=== PATIENT | female | born 1950 | race Caucasian/White ===

== ENCOUNTER 2018-12-02 13:55 | Outpatient (REF) | payer MEDICARE, BC, SELFPAY ==
[2018-12-02 22:29] LABS: Anion Gap 13.2 mmol/L (3-11); BUN 16 mg/dL (7-18); CO2 25.8 mmol/L (21.0-32.0); CREATININE 0.85 mg/dL (0.55-1.02); Calcium 9.2 mg/dL (8.5-10.1); Chloride 104 mmol/L (98-107); Glucose 195 mg/dL (70-100); Potassium 4.1 mmol/L (3.5-5.1); Sodium 143 mmol/L (136-145)
== END 2018-12-02 14:15 ==
LOC: NCHCN 13:55
PROVIDERS: PCP Family Medicine; Visit Provider Family Medicine
DX: I10 Essential (primary) hypertension (principal)
CPT/HCPCS: 80048

== ENCOUNTER 2020-02-03 13:36 | Outpatient (REF) | payer MEDICARE, BC, SELFPAY ==
[2020-02-03 23:01] LABS: ALT 30 U/L (14-59); AST 17 U/L (15-37); Albumin 3.8 g/dL (3.4-5.0); Alkaline Phosphatase 84 U/L (46-116); Anion Gap 8.7 mmol/L (3-11); BUN 26 mg/dL (7-18); Bilirubin, Total 0.3 mg/dL (0.2-1.0); CO2 29.3 mmol/L (21.0-32.0); Calcium 9.4 mg/dL (8.5-10.1); Calculated LDL 85 mg/dL (<100); Chloride 107 mmol/L (98-107); Cholesterol 160 mg/dL (<200); Glucose 111 mg/dL (74-106); HDL Cholesterol 33 mg/dL (40-60); Potassium 5.3 mmol/L (3.5-5.1); Sodium 145 mmol/L (136-145); Total Protein 7.5 g/dL (6.4-8.2); Triglyceride 212 mg/dL (<150)
[2020-02-04 00:11] LABS: Vitamin B12 462 pg/mL (193-986)
[2020-02-04 04:38] LABS: Vitamin D 25 Total 29.7 ng/ml (30-100)
== END 2020-02-03 13:56 ==
LOC: NCHCN 13:36
PROVIDERS: PCP Family Medicine; Visit Provider Family Medicine
DX: I10 Essential (primary) hypertension; E11.40 Type 2 diabetes mellitus with diabetic neuropathy, unspecified; E55.9 Vitamin D deficiency, unspecified
CPT/HCPCS: 80053; 80061; 82306; 82607

== ENCOUNTER 2020-03-14 15:12 | Outpatient (REF) | payer MEDICARE, BC, SELFPAY ==
[2020-03-14 21:02] LABS: Anion Gap 11.5 mmol/L (3-11); BUN 23 mg/dL (7-18); CO2 28.5 mmol/L (21.0-32.0); CREATININE 0.98 mg/dL (0.55-1.02); Calcium 9.3 mg/dL (8.5-10.1); Chloride 103 mmol/L (98-107); Estimated GFR 56.61 (mL/min/1.73m2); Glucose 100 mg/dL (74-106); Potassium 4.1 mmol/L (3.5-5.1); Sodium 143 mmol/L (136-145)
== END 2020-03-14 15:32 ==
LOC: NCHCN 15:12
PROVIDERS: PCP Family Medicine; Visit Provider Nurse Practitioner Family
DX: E87.5 Hyperkalemia (principal)
CPT/HCPCS: 80048

== ENCOUNTER 2021-02-07 14:04 | Outpatient (REF) | payer MEDICARE, BC, SELFPAY ==
[2021-02-07 16:37] LABS: Anion Gap 8.7 mmol/L (3-11); BUN 18 mg/dL (7-18); CO2 29.3 mmol/L (21.0-32.0); CREATININE 0.9 mg/dL (0.55-1.02); Calcium 9.3 mg/dL (8.5-10.1); Chloride 104 mmol/L (98-107); Glucose 143 mg/dL (74-106); Potassium 4.3 mmol/L (3.5-5.1); Sodium 142 mmol/L (136-145)
== END 2021-02-07 14:05 | disposition home or self-care (01) ==
LOC: NCHCN 14:04
PROVIDERS: PCP Family Medicine; Visit Provider Family Medicine
DX: I10 Essential (primary) hypertension (principal); E11.8 Type 2 diabetes mellitus with unspecified complications
CPT/HCPCS: 80048

== ENCOUNTER 2021-08-29 15:05 | Outpatient (REF) | payer MEDICARE, BC, SELFPAY ==
[2021-08-29 16:53] LABS: HCT 38.2 % (36.0-46.0); HGB 12.1 g/dL (11.2-15.7); MCH 27.1 pg (27.0-33.0); MCHC 31.7 % (32.0-36.0); MCV 85.7 fL (80-95); MPV 10.1 fL (8.0-11.0); Platelet Count 363 10^3/uL (130-400); RBC 4.46 10^6/uL (3.93-5.22); RDW 12.3 % (11.7-14.6); RDW-SD 38.6 fL; WBC 8.33 10^3/uL (4.4-10.8)
[2021-08-29 17:32] LABS: ALT 28 U/L (14-59); AST 18 U/L (15-37); Albumin 3.3 g/dL (3.4-5.0); Alkaline Phosphatase 75 U/L (46-116); Anion Gap 11.9 mmol/L (3-11); BUN 23 mg/dL (7-18); Bilirubin, Total 0.4 mg/dL (0.2-1.0); CO2 26.1 mmol/L (21.0-32.0); CREATININE 0.9 mg/dL (0.55-1.02); Calcium 9.2 mg/dL (8.5-10.1); Calculated LDL 49 mg/dL (<100); Chloride 103 mmol/L (98-107); Cholesterol 119 mg/dL (<200); Glucose 162 mg/dL (74-106); HDL Cholesterol 32 mg/dL (40-60); Potassium 3.8 mmol/L (3.5-5.1); Sodium 141 mmol/L (136-145); TSH (W/Ref FT4) < 0.01 uIU/mL (0.36-3.74); Triglyceride 191 mg/dL (<150)
[2021-08-29 18:01] LABS: FREE T4 2.76 ng/dL (0.76-1.46)
== END 2021-08-29 15:06 | disposition home or self-care (01) ==
LOC: NCHCN 15:05
PROVIDERS: PCP Family Medicine; Visit Provider Family Medicine
DX: E11.8 Type 2 diabetes mellitus with unspecified complications (principal)
CPT/HCPCS: 80053; 80061; 85027; 84439; 84443

== ENCOUNTER → 2021-10-27 00:59 | Outpatient (CLI) | payer MEDICARE, BC, SELFPAY ==
--- OUTSIDE RECORDS SUMMARY | 2021-10-27 01:01 | XMS_ITS | Encounter Summary ---
:1950 Author Care Team Providers Name Role Phone Antionette Coronado MD Primary Care Provider [phone] [facility] Medical Records Primary Care Provider [phone] [facility] OTHER [phone] Reason for Visit None recorded. Assessment and Plan 1. Obstructive sleep apnea syndrome VITOR diagnosed in 1998 with an RDI of 24 /hr. She has been using BiPAP Imax 20 cm, Babak 10 cm, PS 4 cm with excellent compliance and reduction in AHI. Unfortunately her is bothered by an oral air leak, puffing from her mouth and residu al snoring even though she is not aware of it. She has tried different masks (nasal and full face mask) with a chin strap and the problem persisted. She just had a titration study. She had mouth puffing once BiPAP reached 14/10 cm. She had a high air leak with her Wisp nasal mask. She did the best on CPAP 11 cm with the Airtouch F20 with elimination of most abno rmal respiratory events, maintaining ravi quate oxygenation and no excessive leaking or mouth puffing. Recommendation is to try CPAP -13 cm and consider a new mask fit with DME. She has actually been doin g pretty well with the F20 and her leak is low on data. Today I set her BiPAP to function as a CPAP with Imax 13 cm, Babak 11 cm and PS 0 cm. I suggested she consider a positional device such as a Slumbe r Bump and she will try this but she sle eps more comfortably on her back. I will see her back in two months. She is going to call if she has a problem. I have asked for a two week compliance. She has be en using the Airtouch F20 and done surpr isingly well with this. She is getting a new cushion 09/13/21. I provided greater than 30 minutes in [facility] care of this patient, more than half the time was spent in [id number] counseling. ? BiPAP supplies Discussion Note: None recorded.Patient educational handouts: No information available. Plan of Care Reminders Provider Appointments Visit 03/02/2023 Polly Patel NP Lab None recorded. ? ? Referral None recorded. ? ? Procedures None recorded. ? ? Surgeries None recorded. ? ? Imaging None recorded. ? ? Medications Name Start Date ? ? Celebrex 200 mg capsule ? Take 1 capsule every day by oral route. CoQ-10 100 mg capsule ? Take 1 capsule twice a day by oral route. fiber 625 mg tablet ? Take 1 tablet every day by oral route. Fish Oil ? 1000mg daily Invokana 100 mg tablet ? Take 1 tablet every day by oral route. Levemir FlexTouch U-100 Insulin 100 unit/mL (3 mL) sub cutaneous pen ? Inject 80 units every day by subcutaneous route at [facility]. metformin 500 mg tablet ? Take 2 tablets twice a day by oral route. turmeric ? 1 cap PO daily Zestoretic 20 mg-12.5 mg tablet ? Take 2 tablets every day by oral route. Zyrtec ? 1 tab a day PO Medications Administered None recorded. Vitals Height Weight BMI Blood Pressure 5 ft 6.5 in 265 lbs 42.1 kg/m2 136/76 mm[Hg] Results Lab Results None recorded. Allergies Code Code System Name Reaction Severity Onset NKDA ? ? ? Problems Name Status Onset Date Source ? Polyp of Colon Active 12/01/2018 ? Diabetes Mellitus Active 12/01/2018 ? Obesity Active 12/01/2018 ? Hypertensive Disorder Active 12/01/2018 ? Lymphedema Active 12/01/2018 ? Umbilical Hernia Active 12/01/2018 ? Hernia of Abdominal Cavity Active 12/01/2018 ? Diverticulitis of Colon Active 12/01/2018 ? Atopic Dermatitis Active 12/01/2018 ? Osteoarthritis of Knee Active 12/01/2018 ? Chronic Low Back Pain Active 12/01/2018 ? Sciatica Active 12/01/2018 ? 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 Obstructive Sleep Apnea Syndrome Active ? History Procedures None recorded. Vaccine List Vaccine Type COVID-19, mRNA, LNP-S, PF, 30 mcg/0.3 mL dose ([facility]) 08/07/2020 08/28/2020 03/14/2021 Social History Tobacco Smoking Status Never Smoker What is your level of alcohol consumption? None What is your level of caffeine Occasional Notes: mt dew 2 a day consumption? Do you or have you ever used any other N forms of tobacco or nicotine? Are you blind or do you have difficulty Y Notes: 1 contact left eye seeing? Do you use any illicit or recreational N drugs? What is your code status? 0 Are you deaf or do you have serious N difficulty hearing? Functional Status Are you blind or do you have difficulty seeing?? Yes Past Encounters 09/05/2021 Obstructive Sleep Apnea Syndrome Polly Patel, LEAD APPLICATIONS DEVELOPER: [address] [place] [phone], Ph. History of Present Illness Note: <p> Vero Gonzalez comes in for VITOR follow-up.</p><div>
</div><p> Vero was last seen by me on 07/13/21. [facility] 1998 RDI 24/hr. Last visit she was using BiPAP 20/10/4 cm but really struggling to find a mask that would work well for her. She had tried a nasal mask with chin strap but still had a lot of oral air leaking/mouth puffing and snoring that was very bothersome to her . She then tried a Resmed F30 full face mask. and she continued to have snoringthat was loud at times. This persisted even with a chin strap. I increase her pressure to 22/14/4 tosee if snoring improved but let her know it would probably make leak worse. She later called to report poor tolerance to this. Her leak on her last download was 0 secs and her AHI was at goal. Given her ongoing problems I recommended a titration study.</p><div>
</div><div>Titration 08/20/21 (BMI ), sleep efficiency 47%, CPAP titrated from 7 to 14 cm and BiPAP titrated from 8/4 cm to 14/10 cm. Arousal index 8/hr, PLMi 35.9, PLMai 2.9/hr. EKG NSR, She was initially started on BIPAP but at 14/10 cm had mouth puffing so she was put on CPAP and it was quickly titrated from 7 to 11 cm. At CPAP 11 cm with her Wisp mask the respiratory events were well controlled but she had a high mask leak. At CPAP 11 cm with the Airfit F20 there was good control of events and adequate leak but she only had lateral sleep at this setting. Adequate oxygen was maintained at CPAP 11 cm. Recommend to try CPAP 11-13 cm</div><div>
</div><div>Vero says she didn't sleep well because our mattress is a piece of trash. </div><div>Vero tells me she has been using the F20 at home and feels she has done surprisingly well with it in terms of tolerating it and keeping the air leak down. She says her snoring is much better since she turned the humidity up to 4/5. </div><div>
</div><div >
</div><p>ESS today 11/24</p><div>
</div><div>COMPLIANCE DATA REVIEWED WITH PATIENT: {{DATES 08/05/21-09/03/21#}}, Used {{25 30 13#}}/30 days, average use {{5 6 7#}} hours {{number 4#}} minutes a night, 90 th percentile IPAP pressure {{8 9 16.9#}}cm, 90 th percentile EPAP pressure {{9 10 12#}}cm, time in large air leak {{5 10 0#}} minutes, AHI {{1 2 4.4#}}/hour.</div>Review of Systems: ROS as noted in the HPI Review of Systems None recorded. Physical Exam ? Notes: <div>General: A&O, well groo med {{over weight obese* morbidly obese normal weight thin}}. </div><div>HE AD: normocephalic & atraumatic. </div><div>EYES: non icteric.</div><div>LUNGS : CTA all german. Good air movement.</div><div>CARDIO: RRR without murmur, gallop or thrill. </div><div>NEURO: A&O. Georgie l gait.</div><div>PSYCH: Normal mood and affect.</div><div>CUTANEOUS: no overt lesions or rashes</div>
--- OUTSIDE RECORDS SUMMARY | 2021-10-27 01:01 | XMS_ITS | CCD ---
:1950 Author Care Team Providers Name Role Phone MARIO CRUZ MD Attending Physician Unavailable Vital Signs Unknown or Not Available. Allergies Allergy Code Allergy Type Reaction Status No Known Drug Allergies 0 No known drug allergies Active Procedures Unknown or Not Available. History of Immunizations Unknown or Not Available. Problems Unknown or Not Available. Results [facility] COVID RHEONIX - Collect Date/Time : 02/28/2021 11:00 Test Name Code Test Result Test Units Test Ref Range SOURCE= Anterior nasal N/A Tier- EXPOSURE N/A SARS COV2 RNA: 67827-7 NEGATIVE N/A REFERENCE RAN GE: NEGAT Active Medications Medication Code Dose Units Frequency Route Modification Start Date/Time CELEBREX 200MG 0 200 MILLIGRAMS DAILY ORAL 2018 ORAL CAPSULE 16:02 Prescription Detail TAKE 200 MILLIGRAMS ORAL PAUL LY FUROSEMIDE TABLET 0 1 TABLET NEEDED ORAL 06/04 16:02 Prescription Detail TAKE 1 TABLET ORAL NEEDED glipiZIDE 5MG Oral Tablet [id number] 5 MILLIGRAMS DAILY ORAL 06/29/2018 16:02 Prescription Detail TAKE 5 MILLIGRAMS ORAL DAILY LEVEMIR 100U/1ML 0 110 UNIT EVERY EVENING SUBCUTANEOUS 06/29/2018 16:02 SUBCUTANEOUS SOLUT Prescription Detail INJECT 110 UNIT SUBCUTANEOUS EVERY EVENING Lisinopril 10MG Oral Tablet [id number] 10 MILLIGRAMS DAILY ORAL 06/29/2018 16:02 Prescription Detail TAKE 10 MILLIGRAMS ORAL LYNETTE Y metFORMIN HCl [id number] 000 MILLIGRAMS TWICE A DAY ORAL 16:02 1000MG Oral Tablet, Extended Release Prescription Detail TAKE 000 MILLIGRAMS ORAL TWI CE A DAY Medications Administered During Visit Unknown or Not Available. Encounters Encounter Diagnosis Diagnosis Code Start Date CONTACT WITH AND SUSPECTED EXPOSURE TO COVID-19 [id number] 02/28/2021 Social History Smoking Status Code Start Date End Date Never smoker [id number] Patient Decision Aids Unknown or Not Available. Discharge Instructions You were admitted to [facility] on 02/28/2021 10:00 with a principal diagnosis of Contact with and (suspected ) exposure to COVID-19 You had the following tests done: COPMIGUELINA Y COVID RHEONIX You were discharged from [facility] 01 on 02/28/2021 10:00 Should you have any questions prior to d ischarge, please contact a member of your healthcare team. If you have left the ho spital and have any questions, please contact your primary care physician. Chief Complaint and Reason For Visit Unknown or Not Available. Function Status Unknown or Not Available. Plan of Care Unknown or Not Available. Referral/Transition of Care Unknown or Not Available.
--- OUTSIDE RECORDS SUMMARY | 2021-10-27 01:01 | XMS_ITS ---
:1950 Author Care Team Providers Name Role Phone RICARDO BLANKENSHIP MD Primary Care Provider [phone] [facility] MEDICAL RECORDS Primary Care Provider [phone] [facility] OTHER [phone] Allergies Code Code System Name Reaction Severity Status Onset NKDA ? Medications Name Status Start Date Stop Date ? ? aspirin 81 mg tablet,delayed release Completed ? 07/17/2021 Take 1 tablet every day by oral route. Celebrex 200 mg capsule Active ? Not avai lable Take 1 capsule every day by oral route. CoQ-10 100 mg capsule Active ? Not availa ble Take 1 capsule twice a day by oral route. fiber 625 mg tablet Active ? Not availabl e Take 1 tablet every day by oral route. Fish Oil Active ? Not available 1000mg daily glipizide 5 mg tablet Completed ? 07/17/2021 Take 1 tablet every day by oral route. Invokana 100 mg tablet Active ? Not avail able Take 1 tablet every day by oral route. Levemir FlexTouch U-100 Insulin 100 unit/mL (3 mL) subcutaneous pen Active ? Not available Inject 80 units every day by subcutaneous route at bedtime. metformin 500 mg tablet Active ? Not avai lable Take 2 tablets twice a day by oral route. turmeric Active ? Not available 1 cap PO daily Victoza Completed ? 09/05/2021 1.8 mg daily Zestoretic 20 mg-12.5 mg tablet Active ? Not available Take 2 tablets every day by oral route. Zyrtec Active ? Not available 1 tab a day PO Problems Name Status Onset Date Source ? [...] Syndrome Active ? History Procedures None recorded. Results Lab Results None recorded. Past Encounters 09/05/2021 Obstructive Sleep Apnea Syndrome Polly Patel PHARMACY GRAD INTERN: [address] [place] [phone], Ph. 07/13/2021 Obstructive Sleep Apnea Syndrome Polly Patel PHARMACY GR[employer] INTERN: [address] [place] [phone], Ph. 03/02/2021 Obstructive Sleep Apnea Syndrome Polly Patel PHARMACY GR[employer] INTERN: [address] [place] [phone], Ph. Social History Tobacco Smoking Status Never Smoker Vaccine List Vaccine Type COVID-19, mRNA, LNP-S, PF, 30 mcg/0.3 mL dose ([facility]) 08/07/2020 08/28/2020 03/14/2021 Plan of Care Reminders Provider Appointments None recorded. ? ? Lab None recorded. ? ? Referral None recorded. ? ? Procedures None recorded. ? ? Surgeries None recorded. ? ? Imaging None recorded. ? ? Vitals 09/05/2021 12:00PM Office 30 Height Weight BMI Blood Pressure 168.91 cm 120.2 kg 42.1 kg/m2 136/76 mm[Hg] 07/13/2021 02:00PM Office 30 Height Blood Pressure 168.91 cm 128/62 mm[Hg] 03/02/2021 02:30PM Office 30 Height Weight BMI Blood Pressure 168.91 cm 132.36 kg 46.4 kg/m2 120/62 mm[Hg] 12/08/2018 01:45PM Office 30 Height Weight BMI Blood Pressure 172.72 cm 149.37 kg 50.1 kg/m2 140/68 mm[Hg] 08/29/2017 Height Weight Blood Pressure 172.72 cm 148.32 kg 136/68 mm[Hg] 04/05/2017 Height Weight Blood Pressure 172.72 cm 148.32 kg (1) 144/80 mm[Hg] (2) 160/62 mm[Hg] 01/14/2017 Height Weight Blood Pressure 172.72 cm 152.07 kg 136/88 mm[Hg]
--- NOTE | 2021-10-27 15:10 | DI.DEXA_ITS ---
Exam(s) XR DEXA BONE DENSITY W/WO ZAIDA EXAM: XR DEXA BONE DENSITY W/WO ZAIDA CLINICAL HISTORY: HIGH RISK OSTEOPOROSIS, Z91.89, POSTMENOPAUSAL, Z78.0 TECHNIQUE: Groxis Horizon C densitometer analysis of the left hip and left forearm. COMPARISON: No exams were available for comparison FINDINGS: Lateral view of the thoracic and lumbar spine shows no evidence of compression fractures. Degenerati ve changes with osteophytes are noted in the lumbar region. Lumbar spine bone mineral density measurements were not included due to peroneus measurements. Bone mineral density measurements of the left hip correspond to a total T-score of 0.3. The femoral neck T-score is -0.5, in the normal range.. The left forearm bone mineral density measurements correspond to a T-score of the distal 3rd of 1.4, in the normal range.. IMPRESSION: Normal bone mineral density of the left hip and left forearm.
== END ==
PROVIDERS: PCP Family Medicine; Visit Provider Family Medicine
DX: Z78.0 Asymptomatic menopausal state (principal); Z13.820 Encounter for screening for osteoporosis; M47.816 Spondylosis without myelopathy or radiculopathy, lumbar region
CPT/HCPCS: 77080

== ENCOUNTER 2021-11-13 10:15 | Outpatient (REF) | payer MEDICARE, BC, SELFPAY ==
[2021-11-13 19:54] LABS: FREE T4 1.99 ng/dL (0.76-1.46)
[2021-11-13 22:44] LABS: T3, Total 187 ng/dL (97-169)
== END 2021-11-13 10:16 | disposition home or self-care (01) ==
LOC: LBN 10:15
PROVIDERS: PCP Family Medicine; Visit Provider Internal Medicine Endocrinology, Diabetes & Metabolism
DX: E05.90 Thyrotoxicosis, unspecified without thyrotoxic crisis or storm (principal)
CPT/HCPCS: 84439; 84480

== ENCOUNTER 2021-11-27 15:47 | Outpatient (REF) | payer MEDICARE, BC, SELFPAY ==
[2021-11-27 20:06] LABS: COMMENT (LAB VIEW ONLY) 19.57 mg/dL; Microalb ug/mg Crea 9.2 ug/mg Cr
== END 2021-11-27 15:48 | disposition home or self-care (01) ==
LOC: NCHCN 15:47
PROVIDERS: PCP Family Medicine; Visit Provider Family Medicine
DX: E11.8 Type 2 diabetes mellitus with unspecified complications (principal)
CPT/HCPCS: 82043; 82570

== ENCOUNTER 2021-12-28 15:51 | Outpatient (REF) | payer MEDICARE, BC, SELFPAY ==
[2021-12-28 18:06] LABS: FREE T4 1.24 ng/dL (0.76-1.46)
[2021-12-28 18:08] LABS: TSH < 0.01 uIU/mL (0.36-3.74)
[2021-12-29 18:09] LABS: T3, Total 127 ng/dL (97-169)
== END 2021-12-28 15:52 | disposition home or self-care (01) ==
LOC: NCHCN 15:51
PROVIDERS: PCP Family Medicine; Visit Provider Family Medicine
DX: E05.00 Thyrotoxicosis with diffuse goiter without thyrotoxic crisis or storm (principal)
CPT/HCPCS: 84439; 84443; 84480

== ENCOUNTER 2022-01-29 15:45 | Outpatient (REF) | payer MEDICARE, BC, SELFPAY ==
[2022-01-29 17:57] LABS: FREE T4 0.79 ng/dL (0.76-1.46); TSH 1.49 uIU/mL (0.36-3.74)
[2022-01-30 17:59] LABS: T3, Total 98 ng/dL (97-169)
== END 2022-01-29 15:46 | disposition home or self-care (01) ==
LOC: LBN 15:45
PROVIDERS: PCP Family Medicine; Visit Provider Internal Medicine Endocrinology, Diabetes & Metabolism
DX: E05.00 Thyrotoxicosis with diffuse goiter without thyrotoxic crisis or storm (principal)
CPT/HCPCS: 84439; 84443; 84480

== ENCOUNTER 2022-09-21 21:01 | Outpatient (REF) | payer MEDICARE, BC, SELFPAY ==
[2022-09-21 21:16] LABS: COMMENT (LAB VIEW ONLY) 59.69 mg/dL
== END 2022-09-21 21:02 | disposition home or self-care (01) ==
LOC: NCHCN 21:01
PROVIDERS: PCP Family Medicine; Visit Provider Family Medicine
DX: E11.8 Type 2 diabetes mellitus with unspecified complications (principal)
CPT/HCPCS: 82043; 82570

== ENCOUNTER 2023-05-06 18:39 | Outpatient (REF) | payer MEDICARE, BC, SELFPAY ==
--- OUTSIDE RECORDS SUMMARY | 2023-05-06 18:41 | XMS_ITS | CCD ---
Author Name Unknown Address [address] [place] [address] [id number] Organization Unknown Address [address] [place] [address] [id number] Care Team Providers Care Window Framer Name Role Phone PATTIE RICARDO Mark Anthony Attending Physician [phone] Vital Signs Unknown or Not Available. Allergies Allergy Code Allergy Type Reaction Status No Known Drug Allergies 0 No known drug allergies Active Procedures Unknown or Not Available. History of Immunizations Unknown or Not Available. Problems Unknown or Not Available. Results BASIC METABOLIC PANEL (BMP) - Collect Date/Time: 07/06/2022 17:47 Test Name Code Test Result Test Units Test Ref Rang e GLUCOSE 2345-7 154 mg/dL L=70 H=116 BUN 3094-0 29 mg/dL L=6 H=25 CREATININE 2160-0 1.01 mg/dL L=0.51 H=0.95 SODIUM SERUM 2951-2 140 mmol/L L=136 H=145 POTASSIUM SERUM 2823-3 3.9 mmol/L L=3.4 H=5 .2 CHLORIDE SERUM 2075-0 103 mmol/L L=96 H=110 CARBON DIOXIDE (CO2) 2028-9 29 mmol/L L=22 H=34 ANION GAP 89563-4 7.6 mmol/L CALCIUM SERUM 63096-6 9.1 mg/dL L=8.2 H=10. 2 AGE 71 years eGFR (non-Afr.Amer.) 25671-7 54 mL/min eGFR (Afr-Venezuelan) 17408-3 66 mL/min Active Medications Medication Code Dose Units Frequency Route Modificatio n Start Date/Time CELEBREX 200MG ORAL CAPSULE 0 200 MILLIGRAMS DAILY ORAL 9 16:02 Prescription Detail TAKE 200 MILLIGRAMS ORAL DAILY FUROSEMIDE TABLET 0 1 TABLET NEEDED ORAL 06/29/2018 16:02 Prescription Detail TAKE 1 TABLET ORAL NEEDED glipiZIDE 5MG Oral Tablet [id number] 5 MILLIGRAMS DAILY ORAL 019 16:02 Prescription Detail TAKE 5 MILLIGRAMS ORAL DAILY LEVEMIR 100U/1ML SUBCUTANEOUS SOLUT 0 110 UNIT EVERY EVENING SUBCUTANEOUS 06/29/2018 16:02 Prescription Detail INJECT 110 UNIT SUBCUTANEOUS EVERY EVENI NG Lisinopril 10MG Oral Tablet 453172 10 MILLIGRAMS DAILY ORAL 9 16:02 Prescription Detail TAKE 10 MILLIGRAMS ORAL DAILY metFORMIN HCl 1000MG Oral Tablet, Extended Release [id number] 000 MILLIGRAMS TWICE A DAY ORAL 06/29/2018 16:02 Prescription Detail TAKE 000 MILLIGRAMS ORAL TWICE A DAY Medications Administered During Visit Unknown or Not Available. Encounters Encounter Diagnosis Diagnosis Code Start Date Essential (primary) hypertension I10 07/06/2022 Social History Smoking Status Code Start Date End Date Never smoker [id number] Patient Decision Aids Unknown or Not Available. Discharge Instructions You were admitted to [facility] on 07/06/2022 22:49 with a principal diagnosis of Essential (primary) hypertension You had the following tests done:BASIC METABOLIC PANEL (BMP) You were discharged from [facility] on 07/06/2022 22:49 Should you have any questions prior to discharge, please contact a member of your healthcare team. If you have left the hospital and have any questions, please contact your primary care physician. Chief Complaint and Reason For Visit Unknown or Not Available. Function Status Unknown or Not Available. Plan of Care Unknown or Not Available. Referral/Transition of Care Unknown or Not Available.
--- OUTSIDE RECORDS SUMMARY | 2023-05-06 18:41 | XMS_ITS | CCD ---
Author Name Unknown Address [address] [place] [address] [id number] Organization Unknown Address [address] [place] [address] [phone] Care Team Providers Care Java Performance Engineer Name Role Phone SERA OBANDO Attending Physician [phone] Vital Signs Unknown or Not Available. Allergies Allergy Code Allergy Type Reaction Status No Known Drug Allergies 0 No known drug allergies Active Procedures Unknown or Not Available. History of Immunizations Unknown or Not Available. Problems Unknown or Not Available. Results TSH THYROID STIMULATING HORM ONE* - Collect Date/Time: 09/05/2022 17:59 Test Name Code Test Result Test Units Test Ref Rang e TSH 3014-8 2.467 uIU/mL L=0.360 H=3.74 0 Active Medications Medication Code Dose Units Frequency Route Modificatio n Start Date/Time CELEBREX 200MG ORAL CAPSULE 0 200 MILLIGRAMS DAILY ORAL 9 16:02 Prescription Detail TAKE 200 MILLIGRAMS ORAL DAILY FUROSEMIDE TABLET 0 1 TABLET NEEDED ORAL 06/29/2018 16:02 Prescription Detail TAKE 1 TABLET ORAL NEEDED glipiZIDE 5MG Oral Tablet 150945 5 MILLIGRAMS DAILY ORAL 019 16:02 Prescription Detail TAKE 5 MILLIGRAMS ORAL DAILY LEVEMIR 100U/1ML SUBCUTANEOUS SOLUT 0 110 UNIT EVERY EVENING SUBCUTANEOUS 06/29/2018 16:02 Prescription Detail INJECT 110 UNIT SUBCUTANEOUS EVERY EVENI NG Lisinopril 10MG Oral Tablet [id number] 10 MILLIGRAMS DAILY ORAL 9 16:02 Prescription Detail TAKE 10 MILLIGRAMS ORAL DAILY metFORMIN HCl 1000MG Oral Tablet, Extended Release [id number] 000 MILLIGRAMS TWICE A DAY ORAL 06/29/2018 16:02 Prescription Detail TAKE 000 MILLIGRAMS ORAL TWICE A DAY Medications Administered During Visit Unknown or Not Available. Encounters Encounter Diagnosis Diagnosis Code Start Date Toxic diffuse goiter with no crisis [id number] 09/05/2022 Social History Smoking Status Code Start Date End Date Never smoker [id number] Patient Decision Aids Unknown or Not Available. Discharge Instructions You were admitted to [facility] on 09/05/2022 19:46 with a principal diagnosis of Thyrotoxicosis with diffuse goiter without thyrotoxic crisis or storm You had the following tests done:TSH THYROID STIMULATING HORMONE* You were discharged from [facility] on 09/05/2022 19:46 Should you have any questions prior to [...]
--- OUTSIDE RECORDS SUMMARY | 2023-05-06 18:41 | XMS_ITS | CCD ---
Author Name Unknown Address [address] [place] [address] [id number] Organization Unknown Address [address] [place] [address] [id number] Care Team Providers Care Geodetic Advisor Name Role Phone SERA OBANDO Attending Physician [phone] Vital Signs Unknown or Not Available. Allergies Allergy Code Allergy Type Reaction Status No Known Drug Allergies 0 No known drug allergies Active Procedures Unknown or Not Available. History of Immunizations Unknown or Not Available. Problems Unknown or Not Available. Results TSH THYROID STIMULATING HORM ONE* - Collect Date/Time: 11/05/2022 18:02 Test Name Code Test Result Test Units Test Ref Rang e TSH 3014-8 3.806 uIU/mL L=0.360 H=3.74 0 Active Medications Medication Code Dose Units Frequency Route Modificatio n Start Date/Time CELEBREX 200MG ORAL CAPSULE 0 200 MILLIGRAMS DAILY ORAL 9 16:02 Prescription Detail TAKE 200 MILLIGRAMS ORAL DAILY FUROSEMIDE TABLET 0 1 TABLET NEEDED ORAL 06/29/2018 16:02 Prescription Detail TAKE 1 TABLET ORAL NEEDED glipiZIDE 5MG Oral Tablet 659852 5 MILLIGRAMS DAILY ORAL 019 16:02 Prescription Detail TAKE 5 MILLIGRAMS ORAL DAILY LEVEMIR 100U/1ML SUBCUTANEOUS SOLUT 0 110 UNIT EVERY EVENING SUBCUTANEOUS 06/29/2018 16:02 Prescription Detail INJECT 110 UNIT SUBCUTANEOUS EVERY EVENI NG Lisinopril 10MG Oral Tablet 043198 10 MILLIGRAMS DAILY ORAL 9 16:02 Prescription Detail TAKE 10 MILLIGRAMS ORAL DAILY metFORMIN HCl 1000MG Oral Tablet, Extended Release [id number] 000 MILLIGRAMS TWICE A DAY ORAL 06/29/2018 16:02 Prescription Detail TAKE 000 MILLIGRAMS ORAL TWICE A DAY Medications Administered During Visit Unknown or Not Available. 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 Discharge Instructions You were admitted to [facility] on 11/05/2022 17:58 with a principal diagnosis of Thyrotoxicosis with diffuse goiter without thyrotoxic crisis or storm You had the following tests done:TSH THYROID STIMULATING HORMONE* You were discharged from [facility] on 11/05/2022 17:58 Should you have any questions prior to [...]
--- OUTSIDE RECORDS SUMMARY | 2023-05-06 18:41 | XMS_ITS | CCD ---
Author Name Unknown Address [address] [place] [address] [id number] Organization Unknown Address [address] [place] [address] [phone] Care Team Providers Care Chemical Operator Name Role Phone SERA OBANDO Attending Physician [phone] Vital Signs Unknown or Not Available. Allergies Allergy Code Allergy Type Reaction Status No Known Drug Allergies 0 No known drug allergies Active Procedures Unknown or Not Available. History of Immunizations Unknown or Not Available. Problems Unknown or Not Available. Results TSH THYROID STIMULATING HORM ONE* - Collect Date/Time: 03/04/2023 13:09 Test Name Code Test Result Test Units Test Ref Rang e TSH 3014-8 1.203 uIU/mL L=0.360 H=3.74 0 Active Medications Medication Code Dose Units Frequency Route Modificatio n Start Date/Time CELEBREX 200MG ORAL CAPSULE 0 200 MILLIGRAMS DAILY ORAL 9 16:02 Prescription Detail TAKE 200 MILLIGRAMS ORAL DAILY FUROSEMIDE TABLET 0 1 TABLET NEEDED ORAL 06/29/2018 16:02 Prescription Detail TAKE 1 TABLET ORAL NEEDED glipiZIDE 5MG Oral Tablet [id number] 5 MILLIGRAMS DAILY ORAL 019 16:02 Prescription Detail TAKE 5 MILLIGRAMS ORAL DAILY LEVEMIR 100U/1ML SUBCUTANEOUS SOLUT 0 110 UNIT EVERY EVENING SUBCUTANEOUS 06/29/2018 16:02 Prescription Detail INJECT 110 UNIT SUBCUTANEOUS EVERY EVENI NG Lisinopril 10MG Oral Tablet [id number] 10 MILLIGRAMS DAILY ORAL 9 16:02 Prescription Detail TAKE 10 MILLIGRAMS ORAL DAILY metFORMIN HCl 1000MG Oral Tablet, Extended Release [id number] 000 MILLIGRAMS TWICE A DAY ORAL 06/29/2018 16:02 Prescription Detail TAKE 000 MILLIGRAMS ORAL TWICE A DAY Medications Administered During Visit Unknown or Not Available. Encounters Encounter Diagnosis Diagnosis Code Start Date Disorder of thyroid gland [id number] 2022 Social History Smoking Status Code Start Date End Date Never smoker [id number] Patient Decision Aids Unknown or Not Available. Discharge Instructions You were admitted to [facility] on 03/04/2023 10:28 with a principal diagnosis of Disorder of thyroid, unspecified You had the following tests done:TSH THYROID STIMULATING HORMONE* You were discharged from [facility] on 03/04/2023 10:28 Should you have any questions prior to [...]
--- OUTSIDE RECORDS SUMMARY | 2023-05-06 18:42 | XMS_ITS | CCD ---
Author Name Unknown Address [address] [place] [address] [phone] Organization Unknown Address [address] [place] [address] [phone] Care Team Providers Care Seal Mixing Operator Name Role Phone SERA OBANDO Attending Physician [phone] Vital Signs Unknown or Not Available. Allergies Allergy Code Allergy Type Reaction Status No Known Drug Allergies 0 No known drug allergies Active Procedures Unknown or Not Available. History of Immunizations Unknown or Not Available. Problems Unknown or Not Available. Results TSH THYROID STIMULATING HORM ONE* - Collect Date/Time: 07/06/2022 17:46 Test Name Code Test Result Test Units Test Ref Rang e TSH 3014-8 4.333 uIU/mL L=0.360 H=3.74 0 Active Medications Medication Code Dose Units Frequency Route Modificatio n Start Date/Time CELEBREX 200MG ORAL CAPSULE 0 200 MILLIGRAMS DAILY ORAL 9 16:02 Prescription Detail TAKE 200 MILLIGRAMS ORAL DAILY FUROSEMIDE TABLET 0 1 TABLET NEEDED ORAL 06/29/2018 16:02 Prescription Detail TAKE 1 TABLET ORAL NEEDED glipiZIDE 5MG Oral Tablet [id number] 5 MILLIGRAMS DAILY ORAL 019 16:02 Prescription Detail TAKE 5 MILLIGRAMS ORAL DAILY LEVEMIR 100U/1ML SUBCUTANEOUS SOLUT 0 110 UNIT EVERY EVENING SUBCUTANEOUS 06/29/2018 16:02 Prescription Detail INJECT 110 UNIT SUBCUTANEOUS EVERY EVENI NG Lisinopril 10MG Oral Tablet [id number] 10 MILLIGRAMS DAILY ORAL 9 16:02 Prescription Detail TAKE 10 MILLIGRAMS ORAL DAILY metFORMIN HCl 1000MG Oral Tablet, Extended Release [id number] 000 MILLIGRAMS TWICE A DAY ORAL 06/29/2018 16:02 Prescription Detail TAKE 000 MILLIGRAMS ORAL TWICE A DAY Medications Administered During Visit Unknown or Not Available. Encounters Encounter Diagnosis Diagnosis Code Start Date Disorder of thyroid, unspecified E079 07/06/2022 Social History Smoking Status Code Start Date End Date Never smoker [id number] Patient Decision Aids Unknown or Not Available. Discharge Instructions You were admitted to [facility] on 07/06/2022 17:02 with a principal diagnosis of Disorder of thyroid, unspecified You had the following tests done:TSH THYROID STIMULATING HORMONE* You were discharged from [facility] on 07/06/2022 17:02 Should you have any questions prior to [...]
--- OUTSIDE RECORDS SUMMARY | 2023-05-06 18:42 | XMS_ITS | CCD ---
Author Name Unknown Address [address] [place] [address] [id number] Organization Unknown Address [address] [place] [address] [phone] Care Team Providers Care Sanding Line Operator Name Role Phone SERA OBANDO Attending Physician [phone] Vital Signs Unknown or Not Available. Allergies Allergy Code Allergy Type Reaction Status No Known Drug Allergies 0 No known drug allergies Active Procedures Unknown or Not Available. History of Immunizations Unknown or Not Available. Problems Unknown or Not Available. Results TSH THYROID STIMULATING HORM ONE* - Collect Date/Time: 05/03/2022 12:57 Test Name Code Test Result Test Units Test Ref Rang e TSH 3014-8 4.150 uIU/mL L=0.360 H=3.74 0 Active Medications Medication Code Dose Units Frequency Route Modificatio n Start Date/Time CELEBREX 200MG ORAL CAPSULE 0 200 MILLIGRAMS DAILY ORAL 9 16:02 Prescription Detail TAKE 200 MILLIGRAMS ORAL DAILY FUROSEMIDE TABLET 0 1 TABLET NEEDED ORAL 06/29/2018 16:02 Prescription Detail TAKE 1 TABLET ORAL NEEDED glipiZIDE 5MG Oral Tablet [id number] 5 MILLIGRAMS DAILY ORAL 019 16:02 Prescription Detail TAKE 5 MILLIGRAMS ORAL DAILY LEVEMIR 100U/1ML SUBCUTANEOUS SOLUT 0 110 UNIT EVERY EVENING SUBCUTANEOUS 06/29/2018 16:02 Prescription Detail INJECT 110 UNIT SUBCUTANEOUS EVERY EVENI NG Lisinopril 10MG Oral Tablet [id number] 10 MILLIGRAMS DAILY ORAL 9 16:02 Prescription Detail TAKE 10 MILLIGRAMS ORAL DAILY metFORMIN HCl 1000MG Oral Tablet, Extended Release [id number] 000 MILLIGRAMS TWICE A DAY ORAL 06/29/2018 16:02 Prescription Detail TAKE 000 MILLIGRAMS ORAL TWICE A DAY Medications Administered During Visit Unknown or Not Available. Encounters Encounter Diagnosis Diagnosis Code Start Date Disorder of thyroid gland [id number] Social History Smoking Status Code Start Date End Date Never smoker [id number] Patient Decision Aids Unknown or Not Available. Discharge Instructions You were admitted to [facility] on 05/03/2022 18:44 with a principal diagnosis of Disorder of thyroid, unspecified You had the following tests done:TSH THYROID STIMULATING HORMONE* You were discharged from [facility] on 05/03/2022 18:44 Should you have any questions prior to [...]
--- OUTSIDE RECORDS SUMMARY | 2023-05-06 18:42 | XMS_ITS | CCD ---
Author Name Unknown Address [address] [place] [address] [phone] Organization Unknown Address [address] [place] [address] [phone] Care Team Providers Care Catalogue Librarian Name Role Phone SERA OBANDO Attending Physician [phone] Vital Signs Unknown or Not Available. Allergies Allergy Code Allergy Type Reaction Status No Known Drug Allergies 0 No known drug allergies Active Procedures Unknown or Not Available. History of Immunizations Unknown or Not Available. Problems Unknown or Not Available. Results TSH THYROID STIMULATING HORM ONE* - Collect Date/Time: 03/02/2022 12:23 Test Name Code Test Result Test Units Test Ref Rang e TSH 3014-8 2.532 uIU/mL L=0.360 H=3.74 0 Active Medications Medication Code Dose Units Frequency Route Modificatio n Start Date/Time CELEBREX 200MG ORAL CAPSULE 0 200 MILLIGRAMS DAILY ORAL 9 16:02 Prescription Detail TAKE 200 MILLIGRAMS ORAL DAILY FUROSEMIDE TABLET 0 1 TABLET NEEDED ORAL 06/29/2018 16:02 Prescription Detail TAKE 1 TABLET ORAL NEEDED glipiZIDE 5MG Oral Tablet [id number] 5 MILLIGRAMS DAILY ORAL 019 16:02 Prescription Detail TAKE 5 MILLIGRAMS ORAL DAILY LEVEMIR 100U/1ML SUBCUTANEOUS SOLUT 0 110 UNIT EVERY EVENING SUBCUTANEOUS 06/29/2018 16:02 Prescription Detail INJECT 110 UNIT SUBCUTANEOUS EVERY EVENI NG Lisinopril 10MG Oral Tablet [id number] 10 MILLIGRAMS DAILY ORAL 9 16:02 Prescription Detail TAKE 10 MILLIGRAMS ORAL DAILY metFORMIN HCl 1000MG Oral Tablet, Extended Release [id number] 000 MILLIGRAMS TWICE A DAY ORAL 06/29/2018 16:02 Prescription Detail TAKE 000 MILLIGRAMS ORAL TWICE A DAY Medications Administered During Visit Unknown or Not Available. Encounters Encounter Diagnosis Diagnosis Code Start Date Disorder due to type 2 diabetes mellitus [id number] 03 03/02/2022 Social History Smoking Status Code Start Date End Date Never smoker [id number] Patient Decision Aids Unknown or Not Available. Discharge Instructions You were admitted to [facility] on 03/02/2022 19:12 with a principal diagnosis of Type 2 diabetes mellitus with unspecified complications You had the following tests done:TSH THYROID STIMULATING HORMONE* You were discharged from [facility] on 03/02/2022 19:12 Should you have any questions prior to [...]
--- OUTSIDE RECORDS SUMMARY | 2023-05-06 18:42 | XMS_ITS | CCD ---
Author Name Unknown Address [address] [place] [address] [phone] Organization Unknown Address [address] [place] [address] [phone] Care Team Providers Care Draftsperson Name Role Phone PATTIE RICARDO Mark Anthony Attending Physician [phone] Vital Signs Unknown or Not Available. Allergies Allergy Code Allergy Type Reaction Status No Known Drug Allergies 0 No known drug allergies Active Procedures Unknown or Not Available. History of Immunizations Unknown or Not Available. Problems Unknown or Not Available. Results HEMOGLOBIN A1C* - Collect Da te/Time: 03/02/2022 12:23 Test Name Code Test Result Test Units Test Ref Rang e Hgb A1c 4548-4 6.2 % L=3.8 H=5.7 MEAN BLOOD GLUCOSE 90833-2 120 mg/dL Active Medications Medication Code Dose Units Frequency Route Modificatio n Start Date/Time CELEBREX 200MG ORAL CAPSULE 0 200 MILLIGRAMS DAILY ORAL 9 16:02 Prescription Detail TAKE 200 MILLIGRAMS ORAL DAILY FUROSEMIDE TABLET 0 1 TABLET NEEDED ORAL 06/29/2018 16:02 Prescription Detail TAKE 1 TABLET ORAL NEEDED glipiZIDE 5MG Oral Tablet [id number] 5 MILLIGRAMS DAILY ORAL 019 16:02 Prescription Detail TAKE 5 MILLIGRAMS ORAL DAILY LEVEMIR 100U/1ML SUBCUTANEOUS SOLUT 0 110 UNIT EVERY EVENING SUBCUTANEOUS 06/29/2018 16:02 Prescription Detail INJECT 110 UNIT SUBCUTANEOUS EVERY EVENI NG Lisinopril 10MG Oral Tablet [id number] 10 MILLIGRAMS DAILY ORAL 9 16:02 Prescription Detail TAKE 10 MILLIGRAMS ORAL DAILY metFORMIN HCl 1000MG Oral Tablet, Extended Release [id number] 000 MILLIGRAMS TWICE A DAY ORAL 06/29/2018 16:02 Prescription Detail TAKE 000 MILLIGRAMS ORAL TWICE A DAY Medications Administered During Visit Unknown or Not Available. Encounters Encounter Diagnosis Diagnosis Code Start Date Disorder due to type 2 diabetes mellitus [id number] 03 03/02/2022 Social History Smoking Status Code Start Date End Date Never smoker [id number] Patient Decision Aids Unknown or Not Available. Discharge Instructions You were admitted to [facility] on 03/02/2022 22:53 with a principal diagnosis of Type 2 diabetes mellitus with unspecified complications You had the following tests done:HEMOGLOBIN A1C* You were discharged from [facility] on 03/02/2022 22:53 Should you have any questions prior to [...]
--- OUTSIDE RECORDS SUMMARY | 2023-05-06 18:47 | XMS_ITS | CCD ---
Author Name Unknown Address [address] [place] [address] [phone] Organization Unknown Address [address] [place] [address] [phone] Care Team Providers Care Communications Tech Name Role Phone MARIO CRUZ MD Attending Physician [phone] Vital Signs Unknown or Not Available. Allergies Allergy Code Allergy Type Reaction Status No Known Drug Allergies 0 No known drug allergies Active Procedures Unknown or Not Available. History of Immunizations Unknown or Not Available. Problems Unknown or Not Available. Results [facility] Date/Time: 02/28/2021 11:00 Test Name Code Test Result Test Units Test Ref Rang e SOURCE= Anterior nasal N/A Tier- EXPOSURE N/A SARS COV2 RNA: 71343-8 NEGATIVE N/A REFERENCE RANGE: NEGAT Active Medications Medication Code Dose Units Frequency Route Modificatio n Start Date/Time CELEBREX 200MG ORAL CAPSULE 0 200 MILLIGRAMS DAILY ORAL 9 16:02 Prescription Detail TAKE 200 MILLIGRAMS ORAL DAILY FUROSEMIDE TABLET 0 1 TABLET NEEDED ORAL 06/29/2018 16:02 Prescription Detail TAKE 1 TABLET ORAL NEEDED glipiZIDE 5MG Oral Tablet [id number] 5 MILLIGRAMS DAILY ORAL 019 16:02 Prescription Detail TAKE 5 MILLIGRAMS ORAL DAILY LEVEMIR 100U/1ML SUBCUTANEOUS SOLUT 0 110 UNIT EVERY EVENING SUBCUTANEOUS 06/29/2018 16:02 Prescription Detail INJECT 110 UNIT SUBCUTANEOUS EVERY EVENI NG Lisinopril 10MG Oral Tablet [id number] 10 MILLIGRAMS DAILY ORAL 9 16:02 Prescription Detail TAKE 10 MILLIGRAMS ORAL DAILY metFORMIN HCl 1000MG Oral Tablet, Extended Release [id number] 000 MILLIGRAMS TWICE A DAY ORAL 06/29/2018 16:02 Prescription Detail TAKE 000 MILLIGRAMS ORAL TWICE A DAY Medications Administered During Visit Unknown or Not Available. Encounters Encounter Diagnosis Diagnosis Code Start Date CONTACT WITH AND SUSPECTED EXPOSURE TO CARIE-19 [id number] 02/28/2021 Social History Smoking Status Code Start Date End Date Never smoker [id number] Patient Decision Aids Unknown or Not Available. Discharge Instructions You were admitted to [facility] on 02/28/2021 10:00 with a principal diagnosis of Contact with and (suspected) exposure to COVID-19 You had the following tests done:SUMANTH COVID RHEONIX You were discharged from [facility] on 02/28/2021 10:00 Should you have any [...]
[2023-05-06 21:29] LABS: HCT 44.9 % (36.0-46.0); HGB 14.5 g/dL (11.2-15.7); MCH 28.9 pg (27.0-33.0); MCHC 32.3 % (32.0-36.0); MCV 90 fL (80-95); MPV 9.9 fL (8.0-11.0); Platelet Count 357 10^3/uL (130-400); RBC 5.01 10^6/uL (3.93-5.22); RDW 12.6 % (11.7-14.6); RDW-SD 41.8 fL; WBC 6.92 10^3/uL (4.4-10.8)
[2023-05-06 22:25] LABS: Anion Gap 8.6 mmol/L (3-11); BUN 25 mg/dL (7-18); CO2 29.4 mmol/L (21.0-32.0); Calcium 9.8 mg/dL (8.5-10.1); Chloride 103 mmol/L (98-107); Estimated GFR 60.61 (mL/min/1.73m2); Glucose 95 mg/dL (74-106); Potassium 3.8 mmol/L (3.5-5.1); Sodium 141 mmol/L (136-145)
== END 2023-05-06 18:40 | disposition home or self-care (01) ==
LOC: NCHCN 18:39
PROVIDERS: PCP Family Medicine; Visit Provider Family Medicine
DX: Z01.818 Encounter for other preprocedural examination (principal)
CPT/HCPCS: 80048; 85027

== ENCOUNTER 2023-05-31 08:53 | Day surgery (SDC) | payer MEDICARE, BC, SELFPAY ==
[2023-05-31 09:41] VITALS: BP 135/68; PULSE 72; RESP 17; TEMP 36.5; O2SAT 97
--- NOTE | 2023-05-31 10:13 | W.ANESPRE ---
General Info Date of Service Date Performed: 05/31/23 Height: 5 ft 6.5 in Weight: 120.1 kg Body Mass Index (BMI): 42.0 Surgical Procedure: Operation Date: 05/31/23 10:55 Proposed Procedure Side Surgeon p Cataract Extraction with IOL Implant Left Arturo Campos MD Meds Allergies and Home Medications Allergies Allergy/AdvReac Type Severity Reaction Status Date / Time diclofenac [From Voltaren] Allergy Intermediate Topical Unverified 05/31/23 09:30 Irritation oxycodone AdvReac Intermediate Other (See Unverified 05/31/23 09:30 Comment) Home Medication Medication Instructions Recorded canagliflozin 100 mg tablet 100 mg PO DAILY 05/30/23 (Invokana) celecoxib 200 mg capsule (Celebrex) 200 mg PO DAILY 05/30/23 cetirizine 10 mg capsule (All Day 10 mg PO DAILY PRN 05/30/23 Allergy (cetirizine)) insulin detemir U-100 20 unit subcut DIRECTED 05/30/23 latanoprost 0.005 % eye drops 1 drp ophthalmic (eye) QPM 05/30/23 liraglutide 0.6 mg/0.1 mL (18 mg/3 See Rx Instructions subcut .COMPLEX 05/30/23 mL) subcutaneous pen injector (Victoza 3-Lawrence) lisinopril 20 1 tab PO DAILY 05/30/23 mg-hydrochlorothiazide 12.5 mg tablet (Zestoretic) metformin 500 mg tablet 1,000 mg PO BID 05/30/23 methimazole 5 mg tablet 5 mg PO DIRECTED 05/30/23 timolol 0.5 % eye drops 1 drp ophthalmic (eye) BID 05/30/23 vitamins A,C,M-stsi-dsyywt 4,296 1 cap PO DAILY 05/30/23 mcg-226 mg-90 mg capsule (ICaps AREDS) omega 8-tyw-zic-fish oil 1,000 mg 1 cap PO BID 05/31/23 (120 mg-180 mg) capsule (Fish Oil) Current Visit Medications: Current Medications Generic Name Dose Route Start Last Admin Trade Name Freq PRN Reason Stop Dose Admin Acetaminophen 1,000 mg 05/31/23 06:00 Acetaminophen 500 Mg Tab PO 06/30/23 05:59 Q4H PRN PRN Balanced Salt Solution 500 ml 05/31/23 06:00 Balanced Salt Soln.-Plus 500 Ml Bag OP 06/30/23 05:59 DIRECTED PENELOPE Miscellaneous Medication 0 ml 05/31/23 08:00 05/31/23 10:00 Tropicam./Phenyleph. (1/2.5%) 10 Ml Btl OS 05/31/23 23:59 1 drp DIRECTED PENELOPE Administration Miscellaneous Medication 0 ml 05/31/23 06:00 Prednisolone 1%, Moxifloxacin 0.5%, Bromfenac 0.09% 5ml Btl OS 06/30/23 05:59 DIRECTED PENELOPE Tetracaine HCl 0 ml 05/31/23 06:00 Tetracaine 0.5% 4 Ml Btl OS 06/30/23 05:59 DIRECTED PENELOPE PFSH Active Problems Active Problems: Problem Status Onset Code Cortical age-related cataract, left eye H25.012 Nuclear age-related cataract, left eye H25.12 Medical History Medical History Physical deconditioning Neuropathy due to type 2 diabetes mellitus Hx of fall History of malignant neoplasm of bronchus Edema Amnesia Fatigue Dizziness Lumbosacral radiculopathy Lung cancer Umbilical hernia Idiopathic osteoarthritis Nonulcer dyspepsia Chronic rhinitis PVD (peripheral vascular disease) Bilateral hearing loss Essential hypertension Glaucoma VITOR (obstructive sleep apnea) Severe obesity Disorder due to well controlled type 2 diabetes mellitus Thyrotoxicosis Toxic diffuse goiter Surgical History Surgical History S/P pneumonectomy Tobacco Smoking/Tobacco Use Status: Never Alcohol Alcohol Intake: never Substance Use Substance use type: does not use Vital Signs and Lab Results Vital Signs Most Recent Vital Signs in EMR: Most Recent Vital Signs Temp Pulse Resp BP Pulse Ox 36.5 C 72 17 135/68 97 05/31/23 09:41 05/31/23 09:41 05/31/23 09:41 05/31/23 09:41 05/31/23 09:41 Lab Results Blood Type / Crossmatch: No Data to Display Complete Blood Count: White Blood Count 6.92 10^3/uL (4.4-10.8) 05/06/23 15:50 Red Blood Count 5.01 10^6/uL (3.93-5.22) 05/06/23 15:50 Hemoglobin 14.5 g/dL (11.2-15.7) 05/06/23 15:50 Hematocrit 44.9 % (36.0-46.0) 05/06/23 15:50 Platelet Count 357 10^3/uL (130-400) 05/06/23 15:50 Complete Metabolic Panel: Sodium 141 mmol/L (136-145) 05/06/23 15:50 Potassium 3.8 mmol/L (3.5-5.1) 05/06/23 15:50 Chloride 103 mmol/L (98-107) 05/06/23 15:50 Carbon Dioxide 29.4 mmol/L (21.0-32.0) 05/06/23 15:50 BUN 25 mg/dL (7-18) H 05/06/23 15:50 Creatinine 1.0 mg/dL (0.55-1.02) 05/06/23 15:50 Est GFR (CKD-EPI 2020) 60.61 (mL/min/1.73m2) 05/06/23 15:50 Calcium 9.8 mg/dL (8.5-10.1) 05/06/23 15:50 Glucose 95 mg/dL (74-106) 05/06/23 15:50 Liver Function Panel: No Data to Display Coagulation Panel: No Data to Display Cardiac Panel: No Data to Display Arterial Blood Gas: No Data to Display Venous Blood Gas: No Data to Display Pancreas Panel: No Data to Display Thyroid Panel: No Data to Display Infectious Disease: No Data to Display Blood Cultures: No Data to Display Toxicology Panel: No Data to Display Anesthesia Assessment and Plan Anesthesia History Personal History: No History of Anesthesia Complications Family History: No Family History of Anesthesia Complications Exercise Tolerance Exercise Tolerance: Metabolic Equivalents>4 Pertinent Negatives Pertinent Negatives: No Symptoms of GERD Cardiac & Pulmonary Exam Cardiac Exam: Normal S1/S2 Heart Sounds Pulmonary Exam: Clear Bilateral Breath Sounds Implantable Cardiac Device Does patient have a Pacemaker or an ICD?: No Airway Exam Known Difficult Airway: No Mallampati Class: 2 Mouth Opening: Normal (> 3cm) Thyromental Distance: Greater than 3 cm Neck Range of Motion: Full ROM Neck Circumference: Normal Teeth Condition: Normal Dentition ASA Classification ASA Score: ASA 3 Emergency Case?: No NPO Status NPO Status: NPO Clears >2 hours, Solids >8 hours Anesthesia Plan Resuscitation Status: Full Code Anesthesia Technique: MAC Anesthesia Airway Planned: Natural Airway Monitors Used: Standard Monitors
[2023-05-31 10:29] VITALS: BMI 42.0
[2023-05-31] MEDS: Balanced Salt Soln.-PLUS 500 ML BAG OP (10:49)
[2023-05-31] MEDS: Tetracaine 0.5% 4 ML BTL OS (10:50)
[2023-05-31] MEDS: Duovisc Viscoelastic System EACH 1 EACH (10:50)
[2023-05-31] MEDS: Lidocaine 1% Pres-Free 5 ML VIAL (10:51)
[2023-05-31] MEDS: Povidone-Iodine Ophth 30 ML BTL (10:52)
--- NOTE | 2023-05-31 11:04 | W.PM.DSUDISC ---
Date of service: 05/31/23 Time of Service: 11:05 Discharge Plan Disposition Patient Disposition: Home Discharge Details Attending Provider: Arturo Campos Primary Care Provider: Antionette Coronado Home Meds and New Rx's Prescriptions: No Action celecoxib [Celebrex] 200 mg capsule 200 mg PO DAILY Patient Comments: Take 1 capsule by mouth once a day latanoprost 0.005 % drops 1 drp ophthalmic (eye) QPM Patient Comments: 1 drop into both eyes at bedtime insulin detemir U-100 [Levemir FlexPen] 20 unit subcut DIRECTED Patient Comments: BID metformin 500 mg tablet 1,000 mg PO BID Patient Comments: Take 2 tablet by mouth twice a day methimazole 5 mg tablet 5 mg PO DIRECTED Patient Comments: Take 1 tablet by mouth once a day ICaps AREDS 4,296 mcg-226 mg-90 mg capsule 1 cap PO DAILY timolol 0.5 % drops 1 drp ophthalmic (eye) BID Victoza 3-Lawrence 0.6 mg/0.1 mL (18 mg/3 mL) pen injector See Rx Instructions .ROUTE .COMPLEX Rx Instructions: inject 0.6mg subcutaneously once daily DIRECTED lisinopril-hydrochlorothiazide [Zestoretic] 20-12.5 mg tablet 1 tab PO DAILY Patient Comments: Take 1 tablet by mouth once a day All Day Allergy (cetirizine) 10 mg capsule 10 mg PO DAILY PRN Invokana 100 mg tablet 100 mg PO DAILY Patient Comments: Take 1 tablet by mouth once a day omega 0-ihi-ept-fish oil [Fish Oil] 1,000 mg (120 mg-180 mg) capsule 1 cap PO BID Discharge Instructions Stand Alone Forms: DSU Post-Op Cataract Discharge Orders Discharge Orders: Discharge Order (Routine); Ordered 05/31/23 Ordered By: Arturo Campos DS: Diagnosis Discharge Diagnosis (1) Cortical age-related cataract, left eye: Status: Resolved (2) Nuclear age-related cataract, left eye: Status: Resolved
[2023-05-31 11:05] VITALS: BP 111/71; PULSE 68; RESP 18; TEMP 36.4; O2SAT 98
--- NOTE | 2023-05-31 11:05 | W.PM.OP ---
Date of service: 06/05/23 Time of Service: 11:05 Operative Note Operative Note DATE OF PROCEDURE: 05/31/23 PRE-OP DIAGNOSIS: Nuclear/cortical cataract, left eye POST-OP DIAGNOSIS: same PROCEDURE: Cataract extraction using phacoemulsification with intraocular lens implant, left eye SURGEON: Arturo Campos ANESTHESIA TYPE: Local By Surgeon and MAC Refer to Anesthesia Record PATHOLOGY: none sent COMPLICATIONS: None Patient was transported to: same day Patient's condition: stable Implants: Donaldo and Donaldo Tecnis Eyhance DIB00 Indications: Progressive decreased vision due to cataract, left eye Procedure Description: CATARACT SURGERY OPERATIVE REPORT PREOPERATIVE DIAGNOSIS: 1. Nuclear/cortical cataract, left eye POSTOPERATIVE DIAGNOSIS: Same OPERATION: 1. Cataract extraction using phacoemulsification with posterior chamber intraocular lens implant, left eye. IOL: IOL Senior Network Administrator/Model: Donaldo & Donaldo Tecnis Eyhance DIB00 IOL Power: + 17.5 diopters IOL Serial Number: [id number] Optic Diameter: 6.0 mm Haptic/Overall Diameter: 13.0 mm PHACO INFO: [employer] Vision System with OZil and Active Fluidics Cumulative Dispersed Energy (CDE): 7.63 seconds SURGEON: Arturo Campos MD, IFRAH ANESTHESIA: Monitored A [facility] (MAC), with local sub-tenon's anesthetic infiltration COMPLICATIONS: None SPECIMENS: None INDICATIONS FOR PROCEDURE: The patient is a 72-year-old lady with history of diminished visual acuity in her left eye secondary to the development of nuclear/cortical cataract. She has a history of myopia and wears a contact lens in her left eye to correct her vision for distance. She has previously undergone cataract surgery in the right eye and is doing well postoperatively there. She now presents for cataract surgery in the left eye. See office notes for detailed information. PROCEDURE: The correct surgical eye was identified and marked as the left eye and the pupil was dilated in the preoperative area using mydriatics and cycloplegics. The dilated pupil size was 7.0 mm. The patient elected to proceed without oral sedation. The patient was brought to the operating room where cardiopulmonary monitoring was instituted and surgical time-out was performed, confirming the correct operative eye and IOL power. Topical anesthesia was administered and ophthalmic povidone-iodine 5% was instilled into the conjunctival fornices. The gely-ocular area was prepped with Betadine 10% solution and draped in the usual sterile fashion for intraocular surgery, including an aperture drape. A Tegaderm transparent film dressing was cut in half and used to cover the lashes and lid margins. Care was taken to sequester the lashes and lid margins under the Tegaderm dressing. A lid speculum was placed between the lids of the operative eye and the Seng LuxOR Revalia operating microscope was maneuvered into position. Mohan scissors were then used to make a conjunctival buttonhole approximately 6mm posterior to the limbus in the inferonasal quadrant. Blunt dissection was carried out to expose bare sclera, and a blunt-tipped sub-tenon?s anesthesia cannula was introduced and passed posteriorly along the globe where non-preserved plain lidocaine was injected into posterior sub-Tenon?s space. A sideport knife was used to make a paracentesis port. Intraocular phenylephrine/lidocaine was injected into the anterior chamber.. The anterior chamber was filled with viscoelastic. A keratome knife was used to construct a 2-plane near-clear corneal tunnel extending 2.0mm into clear cornea. A flap was raised on the anterior capsule and capsulorhexis forceps were used to complete a continuous curvilinear capsulorhexis of 5.0 mm. Balanced salt solution was then used to perform cortical cleaving hydrodissection and nuclear hydrodelineation until the lens could be freely rotated within the capsular bag. The lens nucleus was then disassembled and removed within the capsular bag and iris plane using phacoemulsification. Residual cortical material was removed using the irrigation/aspiration handpiece. The posterior capsule was carefully polished to remove as much residual lens epithelial cells as safely possible. The capsular bag was then inflated and the anterior chamber deepened with viscoelastic. The lens implant described above was inserted into the capsular bag using the Donaldo and Donaldo Simplicity pre-loaded injector. A Kuglen hook was used to dial the IOL into position. Residual viscoelastic was then removed first from posterior to the IOL, then from the anterior chamber using the I/A handpiece. The lens implant was noted to center nicely within the capsular bag. The incisions were stromally hydrated, and the anterior chamber was reformed using BSS. Then 0.5cc of moxifloxacin 1.0mg/ml were injected into the capsular bag and anterior chamber. The incisions were checked with a Weck spear and found to be secure. Several drops of ophthalmic povidone-iodine 5% were then applied to the eye followed by two drops of Imprimis combination prednisolone/moxifloxacin/nepafenac solution. The drapes were removed and a clear plastic protective eye shield was placed over the eye. The patient was then returned to [facility] in stable condition.
--- NOTE | 2023-05-31 11:36 | W.ANESPOSTOP ---
Postoperative Evaluation Date, Time and Location Date Performed: 05/31/23 Time Performed: 11:17 Patient Location: Day Surgery Unit Vital Signs Most Recent Imported Vital Signs: Most Recent Vital Signs Temp Pulse Resp BP Pulse Ox 36.4 C L 68 18 111/71 98 05/31/23 11:05 05/31/23 11:05 05/31/23 11:05 05/31/23 11:05 05/31/23 11:05 Pain Score Most Recent Pain Score: Most Recent Pain Score Pain Level 0 05/31/23 11:05 Assessment Mental Status: Awake (Alert & Oriented to Patient Baseline) Airway and Respiratory Function: Patent airway with normal (patient baseline) respiratory exam Cardiovascular Function: Hemodynamically Stable Hydration Status: Adequately Hydrated Nausea & Vomiting: No Nausea or Vomiting Pain: Pt. Denies Any Pain Peripheral Nerve Block: Patient did not receive a nerve block
== END 2023-05-31 11:27 | disposition home or self-care (01) ==
LOC: SUR 08:55
PROVIDERS: PCP Family Medicine; Visit Provider Ophthalmology
PROC: (CPT 66984; principal; 2023-05-31 10:45)
DX: H25.012 Cortical age-related cataract, left eye (principal); H25.12 Age-related nuclear cataract, left eye; Z98.41 Cataract extraction status, right eye
CPT/HCPCS: 66984; 00123; V2632

== ENCOUNTER 2023-08-02 16:48 | Outpatient (REF) | payer MEDICARE, BC, SELFPAY ==
[2023-08-02 15:02] LABS: Hemoglobin A1C 6.3 % (<5.7)
== END 2023-08-02 16:49 | disposition home or self-care (01) ==
LOC: NCHCN 16:48
PROVIDERS: PCP Family Medicine; Visit Provider Family Medicine
DX: E11.8 Type 2 diabetes mellitus with unspecified complications (principal)
CPT/HCPCS: 83036

== ENCOUNTER 2023-08-05 16:22 | Outpatient (REF) | payer MEDICARE, BC, SELFPAY ==
[2023-08-05 22:08] LABS: COMMENT (LAB VIEW ONLY) 19.25 mg/dL; Microalb ug/mg Crea 12.5 ug/mg Cr
== END 2023-08-05 16:23 | disposition home or self-care (01) ==
LOC: NCHCN 16:22
PROVIDERS: PCP Family Medicine; Visit Provider Family Medicine
DX: E11.8 Type 2 diabetes mellitus with unspecified complications (principal)
CPT/HCPCS: 82043; 82570

== ENCOUNTER 2023-11-06 18:07 | Outpatient (REF) | payer MEDICARE, BC, SELFPAY ==
[2023-11-06 21:39] LABS: Hemoglobin A1C 5.9 % (<5.7)
== END 2023-11-06 18:08 | disposition home or self-care (01) ==
LOC: NCHCN 18:07
PROVIDERS: PCP Family Medicine; Visit Provider Family Medicine
DX: E11.40 Type 2 diabetes mellitus with diabetic neuropathy, unspecified (principal)
CPT/HCPCS: 83036